=== PATIENT | male | born 1990 | race Caucasian/White ===

== ENCOUNTER → 2018-08-02 | Outpatient (CLI) | payer OTHER | LOC: CIMAGING 15:39 | PROVIDERS: ATTEND Family Medicine | DX: M25.531 Pain in right wrist (principal); G89.29 Other chronic pain | CPT/HCPCS: 73110-PO ==

== ENCOUNTER → 2018-08-05 | Outpatient (CLI) | payer OTHER | LOC: FIMAGING 14:44 | PROVIDERS: ATTEND Family Medicine | DX: M25.531 Pain in right wrist (principal); G89.29 Other chronic pain; S52.611K Displaced fracture of right ulna styloid process, subsequent encounter for closed fracture with nonunion; M67.921 Unspecified disorder of synovium and tendon, right upper arm ==